=== PATIENT | female | born 2005 | race Caucasian/White ===

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

== ENCOUNTER 2023-02-06 15:09 | Outpatient (CLI) | payer MEDICAID ==
--- NOTE | 2023-02-06 16:59 | Ultrasound Report ---
PROCEDURE: Pelvic w/Transvaginal INDICATIONS: POLYCYSTIC OVAIAN SYNDROME TECHNIQUE: Real-time scanning was performed of the pelvic organs, with image documentation. Additional endovagi nal scanning was necessary due to incomplete visualization of the adnexal and endometrial structures by transabdominal scanning. COMPARISON: None. FINDINGS: Uterus: Uterus is anteverted and normal in size at 6.1 x 3.6 x 4.7 cm. The myometrium is homogeneou s. The endometrium measures 10.5 mm in combined thickness. Ovaries: The right ovary measures 4.5 x 2.8 x 2.2 cm, with a calculated ovarian volume of 15 cc. Th e left ovary measures 3.3 x 2.6 x 2.4 cm, with a calculated ovarian volume of 11 cc. The ovaries hav e a normal sonographic appearance. Greater than 12 follicles can be seen in each ovary. No adnexal masses are seen. No cystic lesions measuring greater than 3 cm. Other: No pathologic free abdominal or pelvic fluid. IMPRESSION: Greater than 12 follicles can be seen in each ovary, which can be seen in the clinical setting of PCO S. Reviewed by: Pierre Greene on 02/06/2023 4:58 PM PST Approved by: Pierre Greene on 02/06/2023 4:58 PM PST Station ID: [id number]
== END 2023-02-06 15:10 | disposition home or self-care (01) ==
LOC: DI 15:09
PROVIDERS: ATTEND Nurse Practitioner
DX: E28.2 Polycystic ovarian syndrome (principal)

== ENCOUNTER 2023-02-08 09:42 | Outpatient (CLI) | payer MEDICAID ==
[2023-02-08 14:45] LABS: BASOPHILS # (AUTO) 0.1 10^3/uL (0.0-0.1); BASOPHILS % (AUTO) 1.1 %; EOSINOPHILS # (AUTO) 0.3 10^3/uL (0.0-0.7); EOSINOPHILS % (AUTO) 5.4 %; HCT - HEMATOCRIT 42.2 % (37.0-47.0); HGB - HEMOGLOBIN 12.9 g/dL (12.0-16.0); LYMPHOCYTES # (AUTO) 1.1 10^3/uL (1.5-3.5); LYMPHOCYTES % (AUTO) 19.7 %; MEAN CORPUSCULAR HEMOGLOBIN 25.5 pg (27.0-31.0); MEAN CORPUSCULAR HGB CONC 30.6 g/dL (32.0-36.0); MEAN CORPUSCULAR VOLUME 83.6 fL (81.0-99.0); MEAN PLATELET VOLUME 12.8 fL (7.9-10.8); MONOCYTES # (AUTO) 0.6 10^3/uL (0.0-1.0); MONOCYTES % (AUTO) 11.5 %; NEUTROPHILS # (AUTO) 3.4 10^3/uL (1.5-6.6); NEUTROPHILS % (AUTO) 62.3 %; PLT - PLATELET COUNT 208 10^3/uL (130-450); RED BLOOD COUNT 5.05 10^6/uL (4.20-5.40); RED CELL DISTRIBUTION WIDTH 14.8 % (12.0-15.0); WHITE BLOOD COUNT 5.4 x10^3/uL (4.8-10.8)
[2023-02-08 15:32] LABS: % IRON SATURATION 10 % (20-50); ALBUMIN 4.6 g/dL (3.2-5.5); ALBUMIN/GLOBULIN RATIO 1.8 (1.0-2.2); ALKALINE PHOSPHATASE 86 IU/L (42-121); ALT ALANINE AMINOTRANSFERASE 10 IU/L (10-60); AMYLASE 33 U/L (28-100); AST ASPARTATE AMINOTRANSFERASE 20 IU/L (10-42); BILIRUBIN,TOTAL 0.5 mg/dL (0.2-1.0); BUN - BLOOD UREA NITROGEN 6 mg/dL (6-20); CALCIUM 9.4 mg/dL (8.5-10.3); CARBON DIOXIDE - CO2 28 mmol/L (21-32); CHLORIDE 105 mmol/L (101-111); CREATININE 0.7 mg/dL (0.6-1.3); CRP - C-REACTIVE PROTEIN < 0.5 mg/dL (<0.5); GFR - MDRD 108 (>89); GLUCOSE 87 mg/dL (74-104); IRON 57 ug/dL (50-212); LIPASE 11 U/L (11-82); POTASSIUM 3.9 mmol/L (3.5-4.5); SODIUM 138 mmol/L (135-145); TOTAL IRON BINDING CAPACITY 566 ug/dL (250-450); TOTAL PROTEIN 7.2 g/dL (6.4-8.9); TRANSFERRIN 404 mg/dL (203-362)
[2023-02-08 15:44] LABS: THYROID STIMULATING HORMONE 0.88 uIU/mL (0.34-5.60)
[2023-02-09 08:09] LABS: VITAMIN D 25-HYDROXY 30.8 ng/mL (30.0-100.0)
[2023-02-09 19:07] LABS: DEAMIDATED GLIADIN IGA 3 units (0-19); DEAMIDATED GLIADIN IGG 2 units (0-19); ENDOMYSIAL IGA Negative (Negative); IMMUNOGLOBULIN A 109 mg/dL (87-352); T-TRANSGLUTAMINASE (TTG) IGA <2 U/mL (0-3); T-TRANSGLUTAMINASE (TTG) IGG 6 U/mL (0-5)
== END 2023-02-08 09:43 | disposition home or self-care (01) ==
LOC: LAB.S 09:42
PROVIDERS: ATTEND Nurse Practitioner Family
DX: R10.9 Unspecified abdominal pain (principal); R53.83 Other fatigue
CPT/HCPCS: 36415; 80053; 82150; 82306; 82784; 83540; 83690; 84439; 84443; 84466; 84481; 85025; 86140; 86231; 86258; 86364